=== PATIENT | female | born 2000 | race Caucasian/White ===

== ENCOUNTER 2023-12-27 13:30 | Emergency (ER) | payer MEDICAID, SELFPAY ==
--- NOTE | ~2023-12-27 | US_ITS ---
EXAMINATION: US OB limited DATE: 12/27/2023 17:59 INDICATION: lower abd/lower back pain, viability . TECHNIQUE: Real-time ultrasound of the pelvis was performed. COMPARISON: None. FINDINGS: There is a single living fetus in vertex presentation, longitudinal lie. The placenta is posterior/f undal. heart rate is 157 bpm. The deepest amniotic fluid pocket measured 4.1 cm. IMPRESSION: Single living fetus in vertex presentation. Reviewed, dictated and finalized at location K.
[2023-12-27 13:53] VITALS: BP 115/75; PULSE 86; RESP 20; TEMP 36.3; O2SAT 100
[2023-12-27 17:16] VITALS: BP 118/74; PULSE 73; RESP 16; O2SAT 100
--- NOTE | 2023-12-27 17:38 | PC.NURSE ---
FHT's monitored from 9391-5733 baseline 155, reassuring for gestational age of approx 19 week. No contractions noted on tracing or palpated. Patient states that she is reassured. Patient is to see Dr Chilel on Sunday to establish care.
[2023-12-27 17:40] LABS: Appearance Urine Clear (Clear); Bilirubin Urine Negative (Negative); Blood Urine Negative (Negative); Color Urine Yellow (Yellow); Glucose Urine UA Negative (Negative); Ketones Urine Negative (Negative); Leukocyte Esterase Ur Negative LEU/UL (Negative); Nitrate Urine Negative (Negative); Protein Urine Negative (Negative); Specific Grav Ur 1.013 (1.001-1.035); Urobilinogen Urine 0.2 mg/dL (<2.0)
[2023-12-27 17:42] LABS: Add Urine Microscopic? NO
--- NOTE | 2023-12-27 18:29 | ED.PREGNANCY ---
HPI - General Chief complaint: [employer] Stated complaint: 19.5 weeks leaking fluid Time Seen by Provider: 12/27/23 16:55 Source: patient Mode of arrival: ambulatory Limitations: no limitations History of Present Illness HPI Narrative: patient is a 23-year-old female who presents the ED with report of lower abdominal cramping. Patient reports she is currently 19 weeks 5 days gestation. She is . She has been seeing an OBGYN in [place], but recently moved to the area and is establishing care with Dr. Chilel on Sunday. reports since last night, she has been having intermittent cramping discomfort in her lower abdomen and lower back. She has not taken any Tylenol. She also reports having clear odorless vaginal discharge. Denies vaginal bleeding or spotting. Denies nausea, vomiting, fevers, dysuria, hematuria. Related Data Allergies Allergy/AdvReac Type Severity Reaction Status Date / Time Penicillins Allergy Rash Verified 12/27/23 13:53 Review of Systems Review of Systems: CONSTITUTIONAL: Denies fever, chills, or sweats. GASTROINTESTINAL: See HPI. GENITOURINARY: See HPI. MUSCULOSKELETAL: See HPI. All systems reviewed & are unremarkable except as noted in HPI and below Exam Narrative: GENERAL: Well appearing, obese with BMI of 32.0, non-toxic, in no acute distress. HEAD: Normocephalic, atraumatic. RESPIRATORY: Airway patent, respirations nonlabored. Clear to auscultation bilaterally, no rales, rhonchi, wheezing. CARDIOVASCULAR: Regular rate and rhythm without murmurs, rubs, or gallops. ABDOMINAL: Soft, no significant tenderness throughout abdomen, nondistended. Normoactive BS. Uterus gravid below umbilicus. MUSCULOSKELETAL: Moves all extremities. No gross deformities. SKIN: Warm, dry, normal color. NEURO: A&O X3. Speech clear. Cranial nerves II-XII grossly intact. Steady gait. No ataxic movements. PSYCHIATRIC: Appropriate mood and affect. Normal interaction. Course Vital Signs Vital signs: Vital Signs Temperature 97.4 F L 12/27/23 13:53 Pulse Rate 86 12/27/23 13:53 Respiratory Rate 20 12/27/23 13:53 Blood Pressure 115/75 12/27/23 13:53 Pulse Oximetry 100 12/27/23 13:53 Oxygen Delivery Room Air 12/27/23 13:53 Temperature 97.4 F L 12/27/23 13:53 Pulse Rate 73 12/27/23 17:16 Respiratory Rate 16 12/27/23 17:16 Blood Pressure 118/74 12/27/23 17:16 Pulse Oximetry 100 12/27/23 17:16 Oxygen Delivery Room Air 12/27/23 13:53 MDM - OB/Uterine Contractions MDM Narrative Medical decision making narrative: Patient presented to ED with lower abdominal/lower back crampy, currently 19 weeks gestation. Confirmed IUP. Patient stable upon arrival. VSS. OB came to monitor patient. FHT's monitored from 1276-0170 baseline 155, reassuring for gestational age of approx 19 week. No contractions noted on tracing or palpated. Patient states that she is reassured. OB f/u US consistent with above, showing live baby. Good FHT. UA clear Patient will be discharged to f/u with Dr. Chilel on Sunday. Recommended to take Tylenol, rest as needed. Given return precautions. D/C in stable condition. Medical Records Attestation: I reviewed the patient's medical records. Lab Data Attestation: I reviewed the patient's lab results. Labs: Lab Results 12/27/23 Range/Units 17:32 Urine Color Yellow (Yellow) Urine Appearance Clear (Clear) Urine pH 6.0 (5.0-9.0) Ur Specific [place] 1.013 (1.001-1.035) Urine Protein Negative (Negative) mg/dL Urine Glucose (UA) Negative (Negative) mg/dL Urine Ketones Negative (Negative) mg/dL Ur Blood (Man) Negative (Negative) Urine Nitrate Negative (Negative) Urine Bilirubin Negative (Negative) Urine Urobilinogen 0.2 (<2.0) mg/dL Leukocyte Esterase Rfl Negative (Negative) MECHE/UL Imaging Data Attestation: I personally reviewed and interpreted this imaging study as follows: Radiologist'
== END 2023-12-27 18:54 | disposition home or self-care (01) ==
PROVIDERS: Emergency Provider Physician Assistant
DX: O26.892 Other specified pregnancy related conditions, second trimester (principal); R10.30 Lower abdominal pain, unspecified; Z3A.19 19 weeks gestation of pregnancy
CPT/HCPCS: 76815; 81003; 99284

== ENCOUNTER 2024-05-15 17:02 | Inpatient (IN) | payer MEDICAID, SELFPAY ==
[2024-05-15] VITALS (72 sets, daily range): BP systolic 96–183; BP diastolic 52–137; PULSE 59–150; TEMP 36.7; O2SAT 95–100; BMI 36.5
--- NOTE | 2024-05-15 17:32 | LDADM ---
This patient, Negar Lseter, was admitted to Labor/Delivery/Recovery 108 on 05/15/24 at 17:02. Plans for labor, pain management and were discussed with patient. Patient/family oriented to hospital policies and general routines including ID bracelet, bed and alarms, visiting hours, pain management, procedures, bathroom and other care routines, personal items, smoking policy, room service/diet and guest tray routines, security routines, and visiting hours. Patient/Family are encouraged to report perceived risks to care and to ask questions if they do not understand what they are told or what they should do. See OBIX for further documentation.
[2024-05-15 17:55] LABS: Basophils Percent Auto 0.3 % (0.2-1.2); Eosinophils Absolute Auto 0.1 K/mm3 (0-0.3); Eosinophils Percent Auto 0.5 % (0-4.4); Hemoglobin 12.3 g/dL (12.0-15.0); Immature Granulocyte Absolute 0.04 K/mm3 (0.00-0.031); Immature Granulocyte Percent A 0.4 % (0-0.5); Lymphocytes Absolute Auto 2.26 K/mm3 (0.9-3.2); Lymphocytes Percent Auto 24.5 % (18.3-44.2); Mean Corpuscular HGB Conc 34.2 g/dl (32-36); Mean Corpuscular Hemoglobin 30.4 pg (26-34); Mean Corpuscular Volume 89.1 fl (80-100); Mean Platelet Volume 9.7 fl (7.4-10.4); Monocytes Absolute Auto 0.8 K/mm3 (0.1-0.6); Monocytes Percent Auto 8.5 % (2.6-8.5); Neutrophils Absolute Auto 6.1 K/mm3 (1.3-6.7); Neutrophils Percent Auto 65.8 % (45.5-73.1); Platelet Count Result 188 k/mm3 (150-375); Red Blood Count 4.04 M/mm3 (4.2-5.4); Red Cell Distribution Width 13.5 % (11.5-14.5); White Blood Count 9.2 K/mm3 (4.5-10.0)
--- NOTE | 2024-05-15 18:01 | P.PNAN_ITS ---
Anes - Eval Pre Procedure Procedure: Labor epidural Date/Time: 05/15/24 18:01 Surgeon: Getachew Preop Diagnosis: Abdominal pain with contractions Pre Op Diagnosis: Induction of Labor Patient Data Age: 24 Gender: F Height: 1.68 m Weight: 102.6 kg Last Vital Signs Temp 98.1 F 05/15/24 17:31 Pulse 80 05/15/24 17:31 BP 123/76 05/15/24 17:31 Allergies Allergy/AdvReac Type Severity Reaction Status Date / Time amoxicillin Allergy Rash Verified 04/16/24 13:46 Penicillins Allergy Rash Verified 12/27/23 13:53 Home Medications Medication Instructions Recorded Confirmed Type ferrous sulfate 325 mg (65 mg 325 mg PO DAILY 04/16/24 04/16/24 History iron) tablet (Iron (ferrous sulfate)) vits 75-iron 28 mg-folic 1 pkg PO 04/16/24 History acid 800 mcg-omega3 440 mg oral pack Laboratory Tests 05/15/24 05/15/24 17:33 17:34 WBC 9.2 K/mm3 (4.5-10.0) RBC 4.04 L M/mm3 (4.2-5.4) Hgb 12.3 g/dL (12.0-15.0) Hct 36.0 L % (37.0-47.0) MCV 89.1 fl (80-100) MCH 30.4 pg (26-34) MCHC 34.2 g/dl (32-36) RDW 13.5 % (11.5-14.5) Plt Count 188 k/mm3 (150-375) MPV 9.7 fl (7.4-10.4) Immature Gran % (Auto) 0.4 % (0-0.5) Neut % (Auto) 65.8 % (45.5-73.1) Lymph % (Auto) 24.5 % (18.3-44.2) [place] % (Auto) 8.5 % (2.6-8.5) Eos % (Auto) 0.5 % (0-4.4) Baso % (Auto) 0.3 % (0.2-1.2) Lymph # (Auto) 2.26 K/mm3 (0.9-3.2) [place] # (Auto) 0.8 H K/mm3 (0.1-0.6) Eos # (Auto) 0.1 K/mm3 (0-0.3) Baso # (Auto) 0.0 K/mm3 (0.0-0.1) Abs Immat Gran (auto) 0.04 H K/mm3 (0.00-0.031) Absolute Neuts (auto) 6.1 K/mm3 (1.3-6.7) Absolute Nucleated RBC 0.000 K/mm3 (0.0-0.012) Nucleated RBC % 0.0 % (0.0-0.2) RPR Pending HIV 1&2 Ab/P24 Ag 4thGn Pending : gestational age HCG: positive Patient hx anesthesia problems: none Family hx anesthesia problems: none Results Review: All pre-operative results and documents have been reviewed as part of the pre- operative evaluation. REPLACED BY [facility] Past Medical History Medical History (Updated 05/15/24 @ 18:02 by Sam Ordoñez Jr., CRNA) History of smoking Obesity Social History Social History Years smoked: 2 Smoking status: Former smoker Tobacco type: e-cigarettes/vaping Substance use: never Do You Feel Safe in your Home?: Yes Lack of Transportation: No Lack of Food: Never True Current Housing: I Have Housing Concerned About Future Housing: No Difficulty Paying Gas/Electric Bills: No Difficulty Paying for Meds: No Currently Unemployed: No Education: High School Diploma/GED Difficulty w/ Childcare or Family Care: No Spiritual care concerns: No Exam Day of Procedure 05/15/24 18:01 Patient weight: obese Airway: Mallampati scale class II Neurological: alert and oriented
[2024-05-15 18:24] LABS: Rapid Plasma Reagin Non-Reactive (NonReactive)
[2024-05-15] MEDS: LACTATED RINGERS 1,000 ML 125 ML IV CONT ×2 (18:36→20:53)
[2024-05-15] MEDS: OXYTOCIN 30 UNITS/NS 500 ML 30 UNITS/500 ML BAG IV CONT (18:36)
[2024-05-15 18:47] LABS: HIV 1/2 Ab P24 Ag Result Negative (Negative)
[2024-05-16] VITALS (131 sets, daily range): BP systolic 88–136; BP diastolic 45–107; PULSE 41–121; RESP 14–18; TEMP 36.2–37.3; O2SAT 94–100
[2024-05-16] MEDS: ONDANSETRON INJ 4 MG/2 ML VIAL IV PUSH (03:10)
--- NOTE | 2024-05-16 08:30 | PM.IMHP ---
H&P: HPI History of Present Illness Date/Time: 05/16/24 08:30 Chief Complaint: elective induction of labor Narrative: Patient is a 24 year old female at 39 weeks gestation who presents for elective induction of labor. Her has been overall uncomplicated. She denies bleeding or leakage of fluid. She reports good movement. Review of Systems Review of Systems: All systems reviewed & are unremarkable except as noted in HPI and below PMFSH Past Medical History Medical History (Updated 05/16/24 @ 08:40 by Ze Chilel MD) Encounter for elective induction of labor History of smoking Obesity Social History Social History Years smoked: 2 Smoking status: Former smoker Tobacco type: e-cigarettes/vaping Substance use: never Do You Feel Safe in your Home?: Yes Lack of Transportation: No Lack of Food: Never True Current Housing: I Have Housing Concerned About Future Housing: No Difficulty Paying Gas/Electric Bills: No Difficulty Paying for Meds: No Currently Unemployed: No Education: High School Diploma/GED Difficulty w/ Childcare or Family Care: No Spiritual care concerns: No Meds Home Medications and Allergies Home Medications Medication Instructions Recorded Confirmed Type ferrous sulfate 325 mg (65 mg 325 mg PO DAILY 04/16/24 04/16/24 History iron) tablet (Iron (ferrous sulfate)) vits 75-iron 28 mg-folic 1 pkg PO 04/16/24 History acid 800 mcg-omega3 440 mg oral pack Allergies Allergy/AdvReac Type Severity Reaction Status Date / Time amoxicillin Allergy Rash Verified 04/16/24 13:46 Latex, Natural Rubber Allergy Itching Verified 05/15/24 22:26 Penicillins Allergy Rash Verified 12/27/23 13:53 Vital Signs Vital Signs - 24 hr 05/15/24 17:31 05/15/24 18:01 05/15/24 18:30 Temperature 98.1 F Pulse Rate 80 70 64 Blood Pressure 123/76 115/70 122/76 Pulse Oximetry Oxygen Delivery 05/15/24 19:00 05/15/24 19:36 05/15/24 20:00 Temperature Pulse Rate 71 61 66 Blood Pressure 108/74 116/66 108/55 L Pulse Oximetry Oxygen Delivery 05/15/24 20:19 05/15/24 20:21 05/15/24 20:23 Temperature Pulse Rate 82 80 Blood Pressure 125/83 119/83 Pulse Oximetry 97 Oxygen Delivery 05/15/24 20:24 05/15/24 20:25 05/15/24 20:28 Temperature Pulse Rate 88 104 H Blood Pressure 126/97 H Pulse Oximetry 97 Oxygen Delivery 05/15/24 20:29 05/15/24 20:30 05/15/24 20:33 Temperature Pulse Rate 115 H 87 Blood Pressure 183/137 H Pulse Oximetry 97 Oxygen Delivery 05/15/24 20:34 05/15/24 20:35 05/15/24 20:38 Temperature Pulse Rate 103 H 95 Blood Pressure 107/76 Pulse Oximetry 96 Oxygen Delivery 05/15/24 20:39 05/15/24 20:40 05/15/24 20:43 Temperature Pulse Rate 89 Blood Pressure 127/73 151/101 H Pulse Oximetry 96 Oxygen Delivery 05/15/24 20:44 05/15/24 20:45 05/15/24 20:46 Temperature Pulse Rate 69 68 Blood Pressure 109/62 113/54 L Pulse Oximetry 96 Oxygen Delivery 05/15/24 20:48 05/15/24 20:49 05/15/24 20:50 Temperature Pulse Rate 80 83 Blood Pressure 111/59 L 107/67 Pulse Oximetry 95 Oxygen Delivery 05/15/24 20:53 05/15/24 20:54 05/15/24 20:55 Temperature Pulse Rate 80 68 Blood Pressure 101/66 106/54 L Pulse Oximetry 96 99 Oxygen Delivery 05/15/24 20:58 05/15/24 21:00 05/15/24 21:03 Temperature Pulse Rate 74 72 67 Blood Pressure 112/65 112/66 107/63 Pulse Oximetry 98 Oxygen Delivery 05/15/24 21:05 05/15/24 21:08 05/15/24 21:10 Temperature Pulse Rate 75 76 84 Blood Pressure 96/54 L 102/52 L 96/70 L Pulse Oximetry 99 99 Oxygen Delivery 05/15/24 21:12 05/15/24 21:15 05/15/24 21:17 Temperature Pulse Rate 75 68 77 Blood Pressure 100/61 101/56 L 111/71 Pulse Oximetry 98 Oxygen Delivery 05/15/24 21:20 05/15/24 21:25 05/15/24 21:30 Temperature Pulse Rate 77 67 Blood Pressure 114/76 116/70 Pulse Oximetry 99 100 99 Oxygen Delivery 05/15/24 21:35 05/15/24 21:40 05/15/24 21:45 Temperature Pulse Rate 69 Blood Pressure 109/72 Pulse Oximetry 99 100 99 Oxygen Delivery 05/15/24 21:50 05/15/24 21:55 05/15/24 22:00 Temperature Pulse Rate 67 Blood Pressure 115/75 Pulse Oximetry 100 99 99 Oxygen Delivery 05/15/24 22:05 05/15/24 22:10 05/15/24 22:15 Temperature Pulse Rate 73 Blood Pressure 124/78 Pulse Oximetry 99 99 100 Oxygen Delivery 05/15/24 22:20 05/15/24 22:25 05/15/24 22:30 Temperature Pulse Rate 73 Blood Pressure 125/70 Pulse Oximetry 99 100 100 Oxygen Delivery 05/15/24 22:35 05/15/24 22:40 05/15/24 22:45 Temperature Pulse Rate 71 Blood Pressure 124/98 H Pulse Oximetry 100 99 100 Oxygen Delivery 05/15/24 22:50 05/15/24 22:55 05/15/24 23:00 Temperature Pulse Rate 72 Blood Pressure 125/77 Pulse Oximetry 100 100 100 Oxygen Delivery 05/15/24 23:05 05/15/24 23:10 05/15/24 23:15 Temperature Pulse Rate 70 Blood Pressure 104/64 Pulse Oximetry 99 100 97 Oxygen Delivery 05/15/24 23:20 05/15/24 23:25 05/15/24 23:30 Temperature Pulse Rate 61 Blood Pressure 100/58 L Pulse Oximetry 100 98 99 Oxygen Delivery 05/15/24 23:35 05/15/24 23:40 05/15/24 23:45 Temperature Pulse Rate Blood Pressure Pulse Oximetry 99 97 99 Oxygen Delivery 05/15/24 23:50 05/15/24 23:55 05/16/24 00:00 Temperature Pulse Rate 65 Blood Pressure 116/73 Pulse Oximetry 99 99 99 Oxygen Delivery 05/16/24 00:05 05/16/24 00:10 05/16/24 00:15 Temperature Pulse Rate 66 Blood Pressure 122/77 Pulse Oximetry 99 99 99 Oxygen Delivery 05/16/24 00:20 05/16/24 00:25 05/16/24 00:30 Temperature Pulse Rate 65 Blood Pressure 120/72 Pulse Oximetry 99 98 98 Oxygen Delivery 05/16/24 00:35 05/16/24 00:40 05/16/24 00:45 Temperature Pulse Rate 82 Blood Pressure 127/69 Pulse Oximetry 99 99 98 Oxygen Delivery 05/16/24 00:50 05/16/24 00:55 05/16/24 01:00 Temperature Pulse Rate 69 Blood Pressure 120/72 Pulse Oximetry 99 99 98 Oxygen Delivery 05/16/24 01:15 05/15/24 18:00 05/16/24 01:20 Temperature Pulse Rate 65 Blood Pressure 126/83 Pulse Oximetry 98 98 Oxygen Delivery Room Air 05/16/24 01:25 05/16/24 01:30 05/16/24 01:35 Temperature Pulse Rate 65 Blood Pressure 116/74 Pulse Oximetry 99 98 97 Oxygen Delivery 05/16/24 01:40 05/16/24 01:45 05/16/24 01:50 Temperature Pulse Rate 72 Blood Pressure 103/63 Pulse Oximetry 98 99 98 Oxygen Delivery 05/16/24 01:55 05/16/24 02:00 05/16/24 01:54 Temperature 98.8 F Pulse Rate 75 Blood Pressure 97/60 L Pulse Oximetry 98 98 Oxygen Delivery 05/16/24 02:05 05/16/24 02:10 05/16/24 02:15 Temperature Pulse Rate 62 Blood Pressure 95/54 L Pulse Oximetry 98 98 97 Oxygen Delivery 05/16/24 02:20 05/16/24 02:25 05/16/24 02:30 Temperature Pulse Rate 71 Blood Pressure 95/53 L Pulse Oximetry 98 98 99 Oxygen Delivery 05/16/24 02:35 05/16/24 02:40 05/16/24 02:45 Temperature Pulse Rate 67 Blood Pressure 94/48 L Pulse Oximetry 97 98 97 Oxygen Delivery 05/16/24 02:50 05/16/24 02:55 05/16/24 03:00 Temperature Pulse Rate 72 Blood Pressure 99/60 L Pulse Oximetry 97 99 99 Oxygen Delivery 05/16/24 03:05 05/16/24 03:10 05/16/24 03:15 Temperature Pulse Rate 67 Blood Pressure 110/68 Pulse Oximetry 98 100 99 Oxygen Delivery 05/16/24 03:20 05/16/24 03:25 05/16/24 03:30 Temperature Pulse Rate 63 Blood Pressure 110/64 Pulse Oximetry 97 97 97 Oxygen Delivery 05/16/24 03:35 05/16/24 03:40 05/16/24 03:45 Temperature Pulse Rate 68 Blood Pressure 98/62 L Pulse Oximetry 98 98 96 Oxygen Delivery 05/16/24 03:50 05/16/24 03:55 05/16/24 04:00 Temperature Pulse Rate 79 Blood Pressure 93/65 L Pulse Oximetry 97 97 97 Oxygen Delivery 05/16/24 04:05 05/16/24 04:10 05/16/24 04:15 Temperature Pulse Rate 76 Blood Pressure 93/55 L Pulse Oximetry 97 98 98 Oxygen Delivery 05/16/24 04:20 05/16/24 04:25 05/16/24 04:30 Temperature Pulse Rate 64 Blood Pressure 88/45 L Pulse Oximetry 98 97 97 Oxygen Delivery 05/16/24 04:30 05/16/24 04:35 05/16/24 04:40 Temperature Pulse Rate Blood Pressure Pulse Oximetry 96 98 97 Oxygen Delivery 05/16/24 04:45 05/16/24 04:50 05/16/24 04:55 Temperature 98.4 F Pulse Rate 68 Blood Pressure 94/60 L Pulse Oximetry 97 97 97 Oxygen Delivery 05/16/24 05:00 05/16/24 05:05 05/16/24 05:10 Temperature Pulse Rate 71 Blood Pressure 94/56 L Pulse Oximetry 94 99 99 Oxygen Delivery 05/16/24 05:15 05/16/24 05:20 05/16/24 05:25 Temperature Pulse Rate 66 Blood Pressure 109/73 Pulse Oximetry 99 97 97 Oxygen Delivery 05/16/24 05:30 05/16/24 05:35 05/16/24 05:40 Temperature Pulse Rate 64 Blood Pressure 110/75 Pulse Oximetry 98 96 99 Oxygen Delivery 05/16/24 05:45 05/16/24 05:50 05/16/24 05:55 Temperature Pulse Rate 59 L Blood Pressure 112/76 Pulse Oximetry 98 98 97 Oxygen Delivery 05/16/24 06:00 05/16/24 06:05 05/16/24 06:10 Temperature Pulse Rate 60 Blood Pressure 111/71 Pulse Oximetry 97 98 98 Oxygen Delivery 05/16/24 06:15 05/16/24 06:20 05/16/24 06:25 Temperature Pulse Rate 68 Blood Pressure 116/74 Pulse Oximetry 98 97 99 Oxygen Delivery 05/16/24 06:30 05/16/24 06:35 05/16/24 06:40 Temperature Pulse Rate 58 L Blood Pressure 118/79 Pulse Oximetry 100 99 98 Oxygen Delivery 05/16/24 06:45 05/16/24 06:50 05/16/24 06:55 Temperature Pulse Rate 64 Blood Pressure 115/68 Pulse Oximetry 96 99 99 Oxygen Delivery 05/16/24 07:00 05/16/24 07:05 05/16/24 06:23 Temperature 97.2 F L Pulse Rate 77 Blood Pressure 111/85 Pulse Oximetry 98 98 Oxygen Delivery 05/16/24 07:10 05/16/24 07:15 05/16/24 07:20 Temperature Pulse Rate Blood Pressure Pulse Oximetry 98 98 99 Oxygen Delivery 05/16/24 07:25 05/16/24 07:30 05/16/24 07:35 Temperature Pulse Rate 66 Blood Pressure 98/63 L Pulse Oximetry 99 99 100 Oxygen Delivery 05/16/24 07:40 05/16/24 07:45 05/16/24 07:50 Temperature Pulse Rate 76 Blood Pressure 105/55 L Pulse Oximetry 99 99 98 Oxygen Delivery 05/16/24 07:55 05/16/24 08:00 05/16/24 08:05 Temperature Pulse Rate 76 Blood Pressure 105/60 Pulse Oximetry 98 98 99 Oxygen Delivery 05/16/24 08:10 05/16/24 08:15 05/16/24 08:20 Temperature Pulse Rate 70 Blood Pressure 119/76 Pulse Oximetry 100 99 99 Oxygen Delivery 05/16/24 08:25 05/16/24 08:30 05/15/24 22:26 Temperature Pulse Rate 82 Blood Pressure 113/70 Pulse Oximetry 99 100 Oxygen Delivery Exam Const: General: comfortable and no acute distress HENMT: Mouth: Yes moist mucous membranes Resp: Effort & Inspection: normal respiratory effort Cardio: Rate: regular rate : Other: SVE 4/100/-2, AROM of clear fluid Extrem: General: normal to inspection Psych: Mental Status: mental status grossly normal H&P: Results Labs Labs: Short CBC 05/15/24 Range/Units 17:33 WBC 9.2 (4.5-10.0) K/mm3 Hgb 12.3 (12.0-15.0) g/dL Hct 36.0 L (37.0-47.0) % Plt Count 188 (150-375) k/mm3 Assessment and Plan Assessment and plan (1) Encounter for elective induction of labor: Code(s): Z34.90 - Encounter for supervision of normal , unspecified, unspecified trimester Status: Acute Assessment and Plan: - pitocin per protocol - AROM of clear fluid, SVE 4/100/-2 - FHR category I - IUPC placed
[2024-05-16] MEDS: OXYTOCIN 30 UNITS/NS 500 ML 30 UNITS/500 ML BAG 125 UNITS IV CONT (09:56)
--- NOTE | 2024-05-16 12:15 | OBPPTRN ---
Patient transferred to post room #288 via wheelchair. Baby and Support person present. Oriented to unit, room, information board, rooming in, admission packet and security measures. Patient verbalizes understanding.
[2024-05-16] MEDS: ACETAMINOPHEN 325 MG TABLET 650 MG PO (12:30)
--- NOTE | 2024-05-16 14:00 | PC.NURSE ---
[id number] Introductions were made, then consulted with patient to assess needs related to . Mother led the conversation with her?plans to feed?her infant and the?experience so far. Mother plans on exclusively but will supplement if needed, baby is LGA and is having glucose checks done. Encouraged understanding of the benefits of skin to skin (demonstrating unwrapping and placing upright on her chest), stimulating with massage touch, changing positions to encourage wakefulness, how to watch for early feeding cues, responsive feeding, feeding on demand (aiming for 8-12 times in 24 hours, about every 2-3 hours), milk production, building/maintaining a milk supply, duration of feeding, signs of adequate intake/output and how to record on the feeding sheet. Mother works well with her infant with encouragement and education. Reviewed positioning and ear, shoulder, hip alignment, supporting the breast to facilitate a deep latch, asymmetrical latch (off-center), leading with the chin with a big, open, wide gape and body close to mother. latched optimally to the [left] breast in [cross cradle] position. Education given to the mother of how to visualize the suckling (with good rocking jaw motion), swallows (dropping of the lower jaw) and how to listen for drinking at the breast (the ka sound). was [able] to maintain latch for 13 mins without pain to mother protecting the nipple with optimal positioning and latching. Reviewed comfort measures of healing with a warm, wet washcloth to rinse breast, then leave open to air-dry, good handwashing when or touching the breast/nipples to prevent infection. Mother voiced understanding of skin to skin, stimulating with massage touch, responsive feedings, hand expressed colostrum, talking to to encourage if it has been 2 -2.5 hours since the start of the last , to call if does not latch, or if there is discomfort with . Resources used for education were facilitated with the [visual educational handouts/ tool/mom and baby guide], Inpatient/outpatient resources provided with business card, feeding sheet, name written on the communication board, and the mom/baby guide. Parents voiced understanding of information, demonstrated learning and will call if there is a request for assistance. Reported to the Primary RN.
[2024-05-17] MEDS: ACETAMINOPHEN 325 MG TABLET 650 MG PO (00:42)
[2024-05-17 03:45] VITALS: BP 110/59; PULSE 52; RESP 18; TEMP 36.6; O2SAT 97
[2024-05-17 04:48] LABS: Hematocrit 32.6 % (37.0-47.0); Hemoglobin 10.9 g/dL (12.0-15.0)
--- NOTE | 2024-05-17 08:27 | PM.OBPNVD ---
OB - PN: Subj Subjective Date/time seen: 05/17/24 08:27 Patient comments: no complaints, pain well controlled, incisional pain, tolerating diet and flatus present OB - PN: Obj Data Labs 05/17/24 04:01 Labs: Laboratory Results - last 24 hr 05/17/24 04:01 Hgb 10.9 L Hct 32.6 L OB - PN A/P Plan day: 1 Plan: routine care Comments: No problems, routine care Time Spent With Patient Time: Total time spent is greater than 50% in coordination of care (as documented) at patient's floor/unit and/or counseling patient: Exam Const: General: comfortable, no acute distress and alert Resp: Effort & Inspection: normal respiratory effort Auscultation: no crackles, no rales and no rhonchi Cardio: Rate: regular rate Heart sounds: no click, no murmurs and no rubs GI: Inspection: non-distended GI Palp: No Tenderness to palpation present (GI) Auscultation: normal bowel sounds Other: Incision - CDI Extrem: General: normal to inspection, no pedal edema and no calf tenderness
--- NOTE | 2024-05-17 08:27 | PM.OBDSVD ---
DS: Admitting Diagnosis Discharge Date 05/17/24 Admitting Diagnosis term DS: Discharge Diagnosis Discharge Diagnosis (1) Term delivered: Code(s): O80 - Encounter for full-term uncomplicated delivery Status: Acute OB - DS: Summary OB Procedures : None OB Procedures Intrapartum: Spontaneous Vag Delivery OB Procedures: : None Time Spent with Patient Time attestation: Total time spent providing and/or coordinating discharge services: DS: Data Data Completed and Pending Labs on day of discharge: Labs from last 24 hours 05/17/24 04:01 Hgb 10.9 L Hct 32.6 L Discharge Plan Discharge Discharging Clinician: Lexa Fleming Patient Disposition: Home, Self-Care Activity: pelvic rest Diet: regular Patient Instructions: Antibiotic Form Stand Alone Forms: General Discharge Information Follow-up/Referrals: Lexa Fleming MD [Physician] - Discharge Medications: Continued ferrous sulfate [Iron (ferrous sulfate)] 325 mg (65 mg iron) Tablet 325 mg PO DAILY Daily [phone] mg-mcg-mg Combo Pack 1 pkg PO Date of admission: 05/15/24 17:02 Primary Care Provider: UNKNOWN,DOCTOR Admitting Provider: Ze Chilel Attending physician on admission: Ze Chilel Condition: Stable
[2024-05-17 08:30] VITALS: BP 100/73; PULSE 63; RESP 16; TEMP 36.1; O2SAT 99
[2024-05-17] MEDS: DOCUSATE SODIUM 100 MG CAPSULE PO (08:38)
[2024-05-17] MEDS: MULTIVIT/MIN/PREN/FOL AC/IRON TABLET 1 TAB PO (08:38)
[2024-05-17] MEDS: IBUPROFEN 600 MG TABLET PO (08:38)
[2024-05-17] MEDS: LANOLIN (LANSINOH) 7.5 GM CREAM 1 APPLIC TOPICAL (08:39)
[2024-05-17] MEDS: WITCH HAZEL 40 PADS 1 PAD TOPICAL (08:41)
--- NOTE | 2024-05-17 10:30 | PC.NURSE ---
Consulted with mother concerning needs and she shared her ability to independently latch infant optimally without pain. Mother is feeding appropriately for growth of and understands stimulating to eat if needed. Infant has had appropriate feedings in the last 24 hours meets the outcomes for weight, output, blood sugar and jaundice at this time. Reinforced understanding of milk production, transition of milk, signs of adequate intake, listening for swallows, transition of stool, community resources, and when to call a provider using the resource of the feeding sheet along with the mom and baby guide. Mother voiced understanding of the information shared, is confident to continue effectively her at home, when to call for assistance, denies any additional assistance or education at this time. Reported to the Primary RN.
--- NOTE | 2024-05-17 12:27 | WPDANLDPN2 ---
Anes-Prog Note L&D Date/Time: 05/17/24 12:27 Comfortable throughout: labor and delivery Neuraxial method: epidural Epidural/Spinal procedure site: clean & non-tender Neuro status: Neuro function grossly intact. Cardiovascular status: normal Respiratory status: normal Airway patency: baseline Mental status: baseline Post-Op hydration status: normal Vital Signs: Last Vital Signs Temp 36.1 C L 05/17/24 08:30 Pulse 63 05/17/24 08:30 Resp 16 05/17/24 08:30 BP 100/73 05/17/24 08:30 Pulse Ox 99 05/17/24 08:30 O2 Del Method Room Air 05/16/24 16:00 Pain score (VAS): 2 Post-procedural complaints: none Patient feedback: Patient satisfied with anesthetic care.
[2024-05-19 11:27] VITALS: BP 115/73; PULSE 67; RESP 16; TEMP 36.4; O2SAT 97
--- NOTE | 2024-05-21 03:57 | PM.OBPRVD ---
OB - Vaginal Delivery Note Procedure Delivery date: 05/16/24 Events: Elective Induction of Labor Induction method: Per Misoprostol Protocol Delivery augmentation: Rupture of Membranes and Pitocin Delivery monitor: External Uterine and Internal FHT Route of delivery: Episiotomy description: None Laceration Description: Perineal - 2nd Degree Delivery repair: vicryl Specimen: No Quantitative Blood Loss (ml): 100 Anesthesia type: Epidural Disposition: Floor Complications: No immediate complications Narrative: See H&P and notes for details on patient's admission and labor. She progressed to complete cervical dilation and at the appropriate time began pushing. With adequate expulsive efforts by the mother, the baby's head was delivered without difficulty. Nuchal cord was not present. The baby's left shoulder was anterior and delivered under the pubic symphysis without difficulty. The posterior shoulder and the rest of the baby delivered without difficulty. The umbilical cord was doubly clamped and cut after 60 seconds of delayed cord clamping. Care of the was then assumed by the nursing staff. Baby Date of : 05/16/24 Gestational Age by Date: 39 gender: Female presentation: vertex position: Left Occiput Anterior Placenta delivery description: Expressed Cord Vessel Description: 3 Vessels and Delayed Cord Clamping
== END 2024-05-17 13:03 | disposition home or self-care (01) | DRG 560 ==
LOC: ANHOB2 05-17 10:48 → ANHLDR 05-20 09:45 → ANHOB2 05-20 09:45
PROVIDERS: Admitting Provider Obstetrics & Gynecology; Referring Provider Advanced Practice Midwife; Visit Provider Obstetrics & Gynecology
DX: O70.0 First degree perineal laceration during delivery (principal); Z37.0 Single live birth; Z3A.39 39 weeks gestation of pregnancy
CPT/HCPCS: 36415; 85014; 85018; 85025; 86592; 86703; 86850; 86900; 86901; A9270; G0432; J2405; J2590; J2795; J7120